=== PATIENT | female | born 1980 | race African-American/Black ===

== ENCOUNTER 2021-10-26 05:47 | Emergency (ER) | payer OTHER ==
[~2021-10-26] VITALS: Ht 167.6 cm; Wt 52.2 kg
--- NOTE | 2021-10-26 06:26 | NUR ---
Pt eloped form ER, walked out in stable condition with stable gait.
[2021-10-26] MEDS ORDERED: diphenhydrAMINE 50 MG/1 ML VIAL IM ONE (06:30)
== END 2021-10-26 06:29 | disposition left against medical advice (07) ==
LOC: ER 06:01
DX: Z53.21 Procedure and treatment not carried out due to patient leaving prior to being seen by health care provider (principal)